=== PATIENT | female | born 1990 | race Caucasian/White ===

== ENCOUNTER → 2016-04-13 | Outpatient (CLI) | payer OTHER ==
--- NOTE | 2016-04-13 12:20 | US ---
Complete Obstetric Ultrasound History: 25-year-old with estimated gestational age of 13 weeks 2 days by LMP with EDC of October 17 (uncertain dates). Comparison: None available. Findings: Number: 1 Presentation: Vertex Placental location: Posterior, with a marginal previa. Cervix: Closed, measuring approximately 6.8 cm transabdominally Maximum vertical pocket: 3.4 cm Biometry: Biparietal diameter: 37 mm = 17 weeks, 3 days Head circumference: 132 mm = 16 weeks, 6 days Abdominal circumference: 110 mm = 17 weeks, 0 days Femur length: 21 mm = 16 weeks, 2 days Humerus length: 23 mm = 17 weeks, 0 days Transcerebellar diameter: 17 mm = 18 weeks, 0 days Average ultrasound age: 17 weeks, 0 days EDC based on today's average ultrasound age: September 21, 2016 Estimated weight is 163 grams +/- 24 grams. The estimated weight percentile is 98% based on previous dating. ANATOMY SURVEY: Anatomic survey is limited by early gestational age and positioning. Supratentorial brain: Normal Posterior fossa: Normal Spine: Suboptimal with no overt abnormality. Nose and lips: Suboptimal with no overt abnormality. Heart: Four chamber heart with heart rate of 144. The outflow tracts appear normal with suboptimal v isualization of the LVOT. Stomach: Normal Umbilical cord insertion: Normal Kidneys: Normal Bladder: Normal Number of cord vessels: Three Upper extremities: Normal Lower extremities: Normal Impression: 1. Living single intrauterine with estimated gestational age of 17 weeks 0 days compared to estimated gestation age by LMP of 13 weeks 2 days, likely related to uncertainty in dates. 2. Posterior placenta with marginal previa. Follow-up ultrasound is recommended. Given previa and unc ertain dates, consider follow up with high worker. 3. Limited anatomic survey as above. Recommend followup ultrasound in 2 to 3 weeks to complete anatom ic survey. 4. Additional findings as above.
== END ==
LOC: CIMAGING 10:46
PROVIDERS: ATTEND Family Medicine
DX: O44.22 Partial placenta previa NOS or without hemorrhage, second trimester (principal); Z3A.17 17 weeks gestation of pregnancy
CPT/HCPCS: 76805-PO

== ENCOUNTER → 2016-05-07 | Outpatient (CLI) | payer OTHER ==
--- NOTE | 2016-05-07 11:36 | US ---
Dear Ludmila Emerson CNM, Thank you for sending your patient, Yanci Issa, to us for an US and consultation to assess an atomy. As you know, the patient is a 25 y.o. G1, P0 at 20 weeks and 3 days with an EDC of 09/21/16 bas ed on a 17 week US. Her is complicated by finding of a marginal placenta previa on her 17 w blackfeet US. Yanci denies any significant past medical, surgical, obstetric, or gynecologic history. She and her deny any significant family history. She is taking PNV and reports an allergy to PCN. Genetic Screening: NIPT reassuring (46 XX) The patient denies any uterine contractions, vaginal bleeding, or loss of fluid. Today, she is withou t complaints. US FINDINGS: Number of fetuses: 1 Placental location: Posterior, No previa on transvaginal ultrasound Placental Cord Insertion: Central presentation: Variable Cervix: 3.6 cm, on transvaginal ultrasound MVP: 4.1 cm The adnexa were evaluated. No pathology was seen. Right ovary: Normal Left ovary: Normal heart rate: 160 bpm Measurements: Biparietal diameter: 45 mm, 19 weeks 5 days Head circumference: 169 mm, 19 weeks 4 days Abdominal circumference: 148 mm, 20 weeks 1 days Femur length: 31 mm, 19 weeks 4 days Humerus length: 30 mm, 20 weeks 0 days Transcerebellar diameter: 21 mm, 19 weeks 5 days Average ultrasound age: 19 weeks 6 days Estimated weight: 313 g weight percentile: 16% Anatomy: Supratentorial brain: Normal Cerebral lateral ventricle: 6 mm Posterior fossa: Normal Cisterna magna: 5 mm Nuchal fold: 3.5 mm Lip: Normal Profile: Suboptimal Alveolar Ridge: Appears intact Spine: -- Cervical: Normal -- Thoracic: Normal -- Lumbar: Normal -- Sacral: Normal Heart: -- 4 Chamber: Normal -- Intraventricular septum: Suboptimal -- Right Outflow Tract: Normal -- Left Outflow Tract: Suboptimal -- 3 Vessel View: Suboptimal -- Aortic Arch: Normal -- Ductal Arch: Normal -- Caval View: Normal Diaphragm: Suboptimal Stomach: Normal Abdominal Umbilical Cord Insertion: Normal Right kidney: Normal Left kidney: Normal Bladder: Normal Number of cord vessels: 3 Upper extremities: -- Right Arm: Normal -- Right Hand: Limited -- Left Arm: Normal -- Left Hand: Limited Lower extremities: -- Right Leg: Normal -- Right Foot: Normal, no club foot -- Left Leg: Normal -- Left Foot: Normal, no club foot Gender: Female IMPRESSION: 1. Anatomy: The fetus measures appropriate for gestational age, measuring a normal weight and percen tile. Visualization of the fetus today reveals no overt structural anomalies. However, the profile, h eart, and hands were not well seen secondary to position. There is evidence of normal amniotic fluid, and movement was seen during the examination. - US in 4-6 weeks to reevaluate anatomy 2. Genetic Screening: This patient has had reassuring NIPT results this . Today, no markers of aneuploidy were seen. While her screening and US results are reassuring, we reviewed that fe eleno aneuploidy can only be definitively excluded with diagnostic testing via amniocentesis. After thi s discussion, the patient does not wish to proceed with invasive testing at this time. Thank you again for sending this patient to see us today. Please feel free to contact me with any questions at . Hilary Harper MD Maternal- Medicine
--- NOTE | 2016-05-07 17:52 | US ---
Complete Obstetric Ultrasound dated May 07, 2016 Indication: Check growth and anatomy. The estimated gestational age by LMP is 20 weeks 3 days yieldi ng an EDC of September 21, 2016. Comparison: October 11, 2016 Findings: Number: 1 Presentation: Breech Placental location: Posterior without previa Cervix: Closed transabdominally a 4.9 cm HR: 160 bpm MVP: 4.1 cm Biometry: Biparietal diameter: 4.5 cm 19 weeks 5 days Head circumference: 16.9 cm 19 weeks 4 days Abdominal circumference: 14.8 cm 20 weeks 1 day Femur length: 3.1 cm 19 weeks 4 days Humerus length: 3 cm 20 weeks 0 days HC/AC: 1.14 (1.09 - 1.26) FL/BPD: 68% FL/AC: 21% Average ultrasound age: 19 weeks 6 days EDC based on today's average ultrasound age: September 25, 2016 Estimated weight is 313 +/- 46 gms. The estimated weight is at the 16 % based on previous dating. ANATOMY SURVEY: Supratentorial brain: Normal Posterior fossa: Normal Spine: Normal Nose and lips: Normal Facial profile: Normal Heart: Four chamber heart. Intact interventricular septum. Cardiac outflow tracts: Normal Stomach: Normal Umbilical cord insertion: Normal Kidneys: Normal, no pyelectasis Bladder: Normal Number of cord vessels: Three Upper extremities: Normal Lower extremities: Normal. No clubbing. Impression: 1. Living chambers . Size concordant with dates. The estimated gestational age by biometry is 19 weeks 6 days yielding an EDC of September 25, 2016. 2. Unremarkable anatomy. No anomalies detected. 3. Please see additional consultation by Dr. Siobhan Harper.
== END ==
LOC: FIMAGING 07:52
PROVIDERS: ATTEND Midwife
DX: Z34.82 Encounter for supervision of other normal pregnancy, second trimester (principal); Z3A.19 19 weeks gestation of pregnancy

== ENCOUNTER 2016-05-12 07:52 | Emergency (ER) | payer OTHER ==
[2016-05-12 07:59] VITALS: BP 115/74; PULSE 92; RESP 18; TEMP 98.8; O2SAT 97
--- NOTE | 2016-05-12 08:45 | UCPHY ---
H & P Time Seen by Provider: 05/12/16 08:19 Patient Type: Established HPI/ROS: This patient has nasal congestion over the past 4 days. She has mild pressure in her face left side and left ear. She reports that the drainage from her nose is slightly greenish in color. She notes no exacerbating factors for symptoms. ROS: No fevers. No other constitutional symptoms HEENT: Mild sore throat that she attributes to postnasal drip. Slight decreased hearing in the left ear. Pulmonary: No cough 5 point ROS is otherwise negative Past Medical/Surgical History: Healthy Smoking Status: Never smoked Physical Exam: Physical Exam Vital signs are normal. General: No acute distress HEENT: Nose: Clear discharge with no sinus tenderness to percussion. Ears: Right external canal and TM are clear left external canals clear left TM: Clear effusion oropharynx: No erythema exudates or dysphonia. Eyes: Pupils equal and react to light. Extraocular motions are intact. Lungs: Clear to auscultation bilaterally. No respiratory distress. Cardiac: Regular rate and rhythm with no murmur gallop or rub. Skin: No rash or pallor. Neuro: Alert and oriented x3 with no sensorimotor deficits. Differential diagnosis: Viral URI, serous otitis, doubt bacterial sinusitis Constitutional: Initial Vital Signs Temperature (C) 37.1 C 05/12/16 07:56 Heart Rate 92 05/12/16 07:56 Respiratory Rate 18 05/12/16 07:56 Blood Pressure 115/74 05/12/16 07:56 O2 Sat (%) 97 05/12/16 07:56 Allergies/Adverse Reactions: Penicillins Allergy (Verified 05/12/16 07:59) Home Medications: Medication Instructions Recorded NK [No Known Home Meds] 05/12/16 Medical Decision Making ED Course/Re-evaluation: This patient appears clinically well. No concerning findings on her exam or history. Departure - Departure Disposition: Home, Routine, Self-Care Clinical Impression: Viral upper respiratory infection Serous otitis media Qualifiers: Laterality: left Chronicity: acute Recurrence: not specified as recurrent Qualified Code(s): H65.02 - Acute serous otitis media, left ear Condition: Good Instructions: Upper Respiratory Infection (ED) Additional Instructions: Diagnoses: 1. Viral upper respiratory infection 2. Serous otitis Plan: Humidifier Flonase steroid nasal spray Tylenol or ibuprofen for discomfort as needed Your symptoms should improve over the next 3-7 days Return for any significant worsening despite the treatment plan Referrals: Gisela Magallanes PA [Primary Care Provider] - As per Instructions - PQRS PQRS Measurement: NA
== END 2016-05-12 08:50 | disposition home or self-care (01) ==
LOC: CED 07:52
DX: J06.9 Acute upper respiratory infection, unspecified (principal); H65.02 Acute serous otitis media, left ear
CPT/HCPCS: 99213-PO; G0463-PO

== ENCOUNTER → 2016-06-08 | Outpatient (CLI) | payer OTHER | LOC: FIMAGING 12:48 | PROVIDERS: ATTEND Midwife | DX: Z34.02 Encounter for supervision of normal first pregnancy, second trimester (principal); Z3A.25 25 weeks gestation of pregnancy ==

== ENCOUNTER 2016-06-11 20:17 | Emergency (ER) | payer OTHER | END 2016-06-11 20:26 | disposition left against medical advice (07) | LOC: CED 20:17 | DX: O21.9 Vomiting of pregnancy, unspecified (principal) ==

== ENCOUNTER 2016-09-10 20:34 | Observation (INO) | payer OTHER | END 2016-09-10 22:00 | disposition home or self-care (01) | LOC: FLD 20:34 | PROVIDERS: ADMIT Obstetrics & Gynecology; ATTEND Obstetrics & Gynecology | DX: O47.1 False labor at or after 37 completed weeks of gestation (principal); Z3A.38 38 weeks gestation of pregnancy | CPT/HCPCS: 59025; G0378 ==

== ENCOUNTER 2016-09-14 16:20 | Inpatient (IN) | payer OTHER ==
[2016-09-14] MEDS ORDERED: OXYTOCIN/RINGERS LACTATE 1,000 ML IV PRN (16:47)
[2016-09-14] MEDS ORDERED: EPSOM SALT 454 GM TP PRN (16:47)
[2016-09-14] MEDS ORDERED: OLIVE OIL 118 ML BTL MISC PRN (16:47)
[2016-09-14] MEDS ORDERED: TERBUTALINE SULFATE 1 MG/ML VIAL IV PRN (16:47)
[2016-09-14] MEDS ORDERED: LR 1,000 ML IV PRN (16:47)
[2016-09-14] MEDS ORDERED: OXYTOCIN 10 UNIT/ML VIAL ONE (17:33)
[2016-09-14] MEDS ORDERED: TERBUTALINE SULFATE 1 MG/ML VIAL ONE (17:33)
[2016-09-14] MEDS ORDERED: LIDOCAINE 1% 300 MG/30 ML SDV ONE (17:33)
[2016-09-14] MEDS ORDERED: OLIVE OIL 118 ML BTL ONE (17:33)
[2016-09-14] MEDS ORDERED: AMMONIA AROMATIC 1 EACH AMP IH ONE (17:33)
[2016-09-14] MEDS ORDERED: MISOPROSTOL 200 MCG TAB ONE (17:34)
[2016-09-14 17:37] LABS: % IMMATURE GRANULYOCYTES 1.4 % (0.0-1.1); ABSOLUTE IMMATURE GRANULOCYTES 0.23 10^3/uL (0.00-0.10); ADD DIFF? NO; ADD MORPH? NO; ADD SCAN? NO; ATYPICAL LYMPHOCYTE FLAG 0 (0-99); FRAGMENT RBC FLAG 0 (0-99); HEMATOCRIT 38.2 % (38.0-47.0); HEMOGLOBIN 13.2 g/dL (12.6-16.3); LEFT SHIFT FLG 10 (0-99); LIPEMIA HEMOLYSIS FLAG 90 (0-99); MEAN CELL HEMOGLOBIN 29.8 pg (27.9-34.1); MEAN CELL HEMOGLOBIN CONCENTR. 34.6 g/dL (32.4-36.7); MEAN CELL VOLUME 86.2 fL (81.5-99.8); MEAN PLATELET VOLUME 12.1 fL (8.7-11.7); PLATELET CLUMPS FLAG 0 (0-99); PLATELET COUNT 196 10^3/uL (150-400); RED BLOOD CELL COUNT 4.43 10^6/uL (4.18-5.33); RED CELL DISTRIBUTION WIDTH 13.4 % (11.5-15.2)
[2016-09-14] MEDS ORDERED: fentaNYL 2MCG/ML/BUP 0.1% RTU 100 ML BAG EP ONE (17:54)
[2016-09-14] MEDS ORDERED: BUPIVACAINE 0.25% 30 ML SDV ONE (17:55)
[2016-09-14] MEDS ORDERED: PHENYLEPHRINE HCL 100 MCG/ML SYR ONE (17:55)
[2016-09-14] MEDS ORDERED: fentaNYL 100 MCG/2 ML INJ ONE (17:56)
--- NOTE | 2016-09-14 19:04 | OBPROG ---
OBG Labor Progress Note Assessment/Plan: Assessment: 26 yo @ 39 0/7, active labor Plan: 09/14/16 19:01 FWB reassuring. GBS neg. Expect . Subjective: 26 yo @ 39 0/7, active labor Objective: 09/14/16 17:25 Patient ABO/Rh A POSITIVE 09/14/16 17:25 136/71 91 98% - SVE Dilation (cm): 8 Effacement (%): 100 Station: -2 [place] FHR (bpm): 140 FHR Pattern Variability: Moderate FHR Category: 2 Membranes: SROM Amniotic Fluid Color: Clear Oxytocin Orders Assessment - Pre-Induction/Augmentation Assessment Gestational Age: 39 week(s) and 0 day(s) ICD10 Worksheet Patient Problems: Problems Problem Status Onset Labor established Acute
[2016-09-14] MEDS ORDERED: PHENYLEPHRINE HCL 100 MCG/ML SYR IVP PRN (19:35)
[2016-09-14] MEDS ORDERED: ONDANSETRON 4 MG/2 ML VIAL IVP PRN (19:35)
--- NOTE | 2016-09-14 19:39 | GHP ---
[f rep st] PREOP HISTORY AND PHYSICAL DATE OF ADMISSION: 09/14/2016 CHIEF COMPLAINT: Labor. HPI: The patient is a 26-year-old, G1, P0, female who is at 39 and 0/7th weeks gestation, dated by a 7 week ultrasound, who presents to clinic with complaints of loss of fluid. She was found to be c ontracting irregularly and was about 3-4 cm dilated, 50% effaced, and -2 station. PAST MEDICAL HISTORY: Negative. PAST SURGICAL HISTORY: Negative. OB HISTORY: This is her first . ALLERGIES: Penicillin. CURRENT MEDICATIONS: . REVIEW OF SYSTEMS: Positive for loss of fluid. No vaginal bleeding. Continued to feel good movement. PHYSICAL EXAMINATION: VITAL SIGNS: Stable. GENERAL: She is in no apparent distress. ABDOMEN: G ravid. Estimated weight is 7.5 pounds. Her cervix was 3-4 cm dilated, 50% effaced, -2 statio n. LABS: Significant for A positive, antibody screen negative, rubella immune, RPR nonreactive. Urine culture negative. HIV negative. Gonorrhea and chlamydia negative. GBS negative on 08/25. heart tones are in the 130s with moderate variability. ASSESSMENT AND PLAN: This is a 26-year-old, G1, P0, female who is in early labor. Discussed with t he patient, I recommend if she has not made cervical change within a couple hours we will begin [place] v[place]n for prevention of infection, which the patient agreed to. /[id number]/MODL
--- NOTE | 2016-09-14 19:40 | PREANESOB ---
Obstetric Pre-Anesthesia Info - General Info : 1 Para: 0 WBD: 39 - Info Status: Full Term Monitors: External FHR Baseline (bpm): 145 FHR Pattern: Reassuring - Labor Status Cervical Dilation per last OB SVE: 4, 8 Station per last OB SVE: -2 Indications for Labor Analgesia: Pain Control Labor Epidural: Proposed (SROM.) Anesthesia ROS: Prior general anesthesia. Allergies/Adverse Reactions: Allergy/AdvReac Type Severity Reaction Status Date / Time Penicillins Allergy Verified 05/12/16 07:59 Home Medications: Medication Instructions Recorded 09/10/16 Visit Medications: Generic Name Dose Route Start Last Admin Trade Name Freq PRN Reason Stop Dose Admin Lactated Ringer's 1,000 mls @ 0 mls/hr 09/14/16 16:47 Lr IV 03/13/17 16:46 PRN PRN SEE PROTOCOL CONDITIONS Protocol Per Protocol Oxytocin/Lactated Ringer's 1,000 mls @ 150 mls/hr 09/14/16 16:47 Pitocin 20 Units/Lr (Premix) IV PRN PRN Post- bleeding Ibuprofen 600 mg 09/14/16 16:47 Motrin PO 03/13/17 16:46 Q6HRS PRN post , inflammation Magnesium Sulfate 454 gm 09/14/16 16:47 Epsom Salt TP 03/13/17 16:46 PRN PRN perineal discomfort Ayr Oil 118 ml 09/14/16 16:47 Sweet Oil MISC 03/13/17 16:46 ONCE PRN preneal massage Terbutaline Sulfate 0.25 mg 09/14/16 16:47 Brethine IV 03/13/17 16:46 ONCE PRN Tachysystole Discontinued Medications Generic Name Dose Route Start Last Admin Trade Name Freq PRN Reason Stop Dose Admin Ammonia (Aromatic Spirit) Confirm 09/14/16 17:33 Ammonia Aromatic Administered 09/14/16 17:34 Dose 1 each IH .STK-MED ONE Bupivacaine HCl Confirm 09/14/16 17:55 Sensorcaine 0.25% Sdv Administered 09/14/16 17:56 Dose 30 ml .ROUTE .STK-MED ONE Ephedrine Sulfate Confirm 09/14/16 17:33 Ephedrine Sulfate Administered 09/14/16 17:34 Dose 50 mg .ROUTE .STK-MED ONE Fentanyl Confirm 09/14/16 17:56 Sublimaze Administered 09/14/16 17:57 Dose 100 mcg .ROUTE .STK-MED ONE Fentanyl/Bupivacaine HCl Confirm 09/14/16 17:54 Fentanyl/Bupivacaine/Ns 2 Mcg/Ml 0.1% (Premix Administered 09/14/16 17:55 Dose 100 ml EP .STK-MED ONE Lidocaine HCl Confirm 09/14/16 17:33 Lidocaine Hcl 1% Administered 09/14/16 17:34 Dose 300 mg .ROUTE .STK-MED ONE Misoprostol Confirm 09/14/16 17:34 Cytotec Administered 09/14/16 17:35 Dose 800 mcg .ROUTE .STK-MED ONE Ayr Oil Confirm 09/14/16 17:33 Sweet Oil Administered 09/14/16 17:34 Dose 118 ml .ROUTE .STK-MED ONE Oxytocin Confirm 09/14/16 17:33 Pitocin Administered 09/14/16 17:34 Dose 40 unit .ROUTE .STK-MED ONE Phenylephrine HCl Confirm 09/14/16 17:55 Neosynephrine Administered 09/14/16 17:56 Dose 1,000 mcg .ROUTE .STK-MED ONE Terbutaline Sulfate Confirm 09/14/16 17:33 Brethine Administered 09/14/16 17:34 Dose 1 mg .ROUTE .STK-MED ONE - Anesthesia History Response to Local Anesthetics: Normal Anesthesia & Operative History: No Prior Problems Family Anesthesia History: Negative - Social History Substance Use/Abuse: Denies - Focused Exam Blood Pressure: 139/69 Heart Rate: 87 Height/Weight (Nursing): Height 165.1 cm Weight 77.111 kg Physical Exam: Within normal limits. ASA Status: II Labs: 09/14/16 17:25 Patient ABO/Rh A POSITIVE 09/14/16 17:25 - Plan Anesthetic Plan: CSE Consent Signed and on Chart: Yes Patient/Guardian Understands and Agrees to Plan: Yes Urgent/Emergent Case: [place] amezcua completed preop but documented later for safe timely pt care
--- NOTE | 2016-09-14 19:41 | POSTANESTH ---
Post Anesthetic Evaluation Cardiovascular Status: Normal, Stable Respiratory Status: Normal, Stable, Similar to Pre-op Cond. Level of Consciousness/Mental Status: Can Participate in Eval, Alert and Oriented Pain Control: Adequate, Prn Tx Ordered Nausea/Vomiting Control: Adequate, Prn Tx Ordered Complications Possibly Related to Anesthesia: None Noted (Tolerated CSE well, stable, comfortable.)
[2016-09-14] MEDS ORDERED: LR 500 ML IV SCH (20:00)
[2016-09-14] MEDS ORDERED: fentaNYL 2MCG/ML/BUP 0.1% RTU 100 ML EP SCH (20:00)
[2016-09-14] MEDS ORDERED: HYDROCORTISONE 0.5% CREAM TP PRN (22:36)
[2016-09-14] MEDS ORDERED: ACETAMINOPHEN 325 MG TAB PO PRN (22:36)
[2016-09-14] MEDS ORDERED: SIMETHICONE 80 MG TAB CHEW PO PRN (22:36)
--- NOTE | 2016-09-14 22:39 | OBDEL ---
Info Type: Vaginal GBS+: No Indications for Delivery: Spontaneous Labor, SROM Vaginal Delivery - Labor and Delivery Onset of Contractions Date: 09/14/16 Onset of Contractions Time: 16:00 Onset of Contractions Type: Spontaneous Rupture of Membranes Date: 09/14/16 Rupture of Membranes Time: 15:00 Rupture of Membranes Type: Spontaneous Amniotic Fluid Color: Clear Dilation Complete Date: 09/14/16 Dilation Complete Time: 21:00 Placenta Delivery Date: 09/14/16 Laceration: 2nd Degree Repair: 3-0, Vicryl Vaginal Sponge Count Correct: Yes Vaginal Needle Count Correct: Yes Vaginal Sweep Performed: No EBL: 100 ml Delivery Events: None - Medications Labor Augmentation/Induction Methods Used: None [place] Delivery Date: 09/14/16 Delivery Time: 21:19 JOANNE: 09/21/16 Gestational Age: 39 week(s) and 0 day(s) Sex of : Female Score (1 Min): 8 Score (5 Min): 9 ICD10 Worksheet Patient Problems: Problems Problem Status Onset Labor established Acute
--- NOTE | 2016-09-14 22:41 | OBGCSDC ---
General Delivery Information - General Info : 1 Para: 0 Delivery Physician/CNM: Madhuri Nam Admission Date: 09/14/16 Labs: Patient ABO/Rh A POSITIVE 09/14/16 17:25 Hct 38.2 % (38.0-47.0) 09/14/16 17:25 Vaginal - Diagnosis Labor: Spontaneous Rupture of Membranes Type: Spontaneous Amniotic Fluid Color: Clear Laceration: 2nd Degree Repair: 3-0, Vicryl Delivery Events: None - Hospital Course Antepartum: none Intrapartum: none : none - Delivery Type: Vaginal EBL: 100 ml [place] [employer] [place] Delivery Date: 09/14/16 Delivery Time: 21:19 JOANNE: 09/21/16 Gestational Age: 39 week(s) and 0 day(s) Sex of : Female Score (1 Min): 8 Score (5 Min): 9 Discharge Information - Discharge Information Discharge Medications: Ibuprofen Condition: Good Instruction/Follow Up: See Instruction Sheet, Six Weeks
[2016-09-15] MEDS: IBUPROFEN 600 MG TAB PO PRN ×4 (01:17→20:17)
[2016-09-15] MEDS: DOCUSATE SODIUM 100 MG CAP PO PRN ×2 (07:11→20:30)
--- NOTE | 2016-09-15 10:12 | OBPP ---
Progress Note Assessment/Plan: Assessment: PPD#1 s/p Rh pos Rub imm Recovering well Plan: Routine care trial norco 09/15/16 10:12 Subjective: feels well. still working on latching, milk not in. Ibuprofen not quite enough for cramping/pain, wants to try norco. bleeding appropriate Objective: 09/14/16 17:25 Patient ABO/Rh A POSITIVE 09/14/16 17:25 Temp Pulse Resp BP Pulse Ox 36.4 C 96 16 121/68 H 09/15/16 01:19 09/15/16 01:19 09/15/16 01:19 09/15/16 01:19 Uterine Position/Fundal Height: Umbilicus -2
[2016-09-15] MEDS: HYDROCODONE/APAP 5/325 TAB PO PRN ×2 (11:02→15:28)
[2016-09-15 13:10] VITALS: O2SAT 95
[2016-09-16] MEDS: IBUPROFEN 600 MG TAB PO PRN ×2 (02:32→08:54)
[2016-09-16] MEDS: HYDROCODONE/APAP 5/325 TAB PO PRN ×2 (02:35→08:53)
--- NOTE | 2016-09-16 08:13 | OBPP ---
Progress Note Assessment/Plan: Assessment: 26 yo s/p , ppd 2, doing well. Plan: Routine care. Rh +, rubella immune, home today. 09/16/16 08:12 Subjective: 26 yo s/p , ppd 2, doing well. Objective: 09/14/16 17:25 Patient ABO/Rh A POSITIVE 09/14/16 17:25 Temp Pulse Resp BP Pulse Ox 36.4 C 86 18 123/73 H 95 09/15/16 20:30 09/15/16 20:30 09/15/16 20:30 09/15/16 20:30 09/15/16 08:00 Physical Exam - Physical Exam General Appearance: alert Respiratory: lungs clear Cardiac/Chest: regular rate, rhythm Abdomen: non-tender Skin: warm/dry Neuro/Psych: oriented x 3
[2016-09-16] MEDS: DOCUSATE SODIUM 100 MG CAP PO PRN (08:55)
[2016-09-16 12:56] VITALS: BP 122/71; PULSE 85; RESP 16; TEMP 97.8
== END 2016-09-16 13:00 | disposition home or self-care (01) | DRG 775 ==
LOC: FLD 16:20 → FOB 09-15 00:09
PROVIDERS: ADMIT Obstetrics & Gynecology; ATTEND Obstetrics & Gynecology
DX: O70.1 Second degree perineal laceration during delivery (principal); Z3A.39 39 weeks gestation of pregnancy; Z37.0 Single live birth
CPT/HCPCS: J2370; J2590; J3010; J3105

== ENCOUNTER → 2017-05-25 | Outpatient (CLI) | payer OTHER | LOC: FIMAGING 07:39 | PROVIDERS: ATTEND Obstetrics & Gynecology | DX: Z36.9 Encounter for antenatal screening, unspecified (principal); Z3A.22 22 weeks gestation of pregnancy ==

== ENCOUNTER → 2017-08-31 | Outpatient (CLI) | payer OTHER | LOC: FIMAGING 14:35 | PROVIDERS: ATTEND Obstetrics & Gynecology | DX: O26.893 Other specified pregnancy related conditions, third trimester (principal); Z3A.36 36 weeks gestation of pregnancy ==